=== PATIENT | female | born 1975 | race Caucasian/White ===

== ENCOUNTER 2017-09-30 14:58 | Outpatient (CLI) | payer OTHER ==
--- NOTE | 2017-09-30 16:26 | MMO ---
BILATERAL SCREENING MAMMOGRAMS: 09/30/17 There are no comparison studies available. This is therefore a baseline exam. Interpreted with comput er aided detection. Heterogeneously dense glandular pattern. There is a 1.4 cm nodular mass density in the outer mid left breast. This will need further evaluatio n with diagnostic exam. IMPRESSION: BIRADS 0: Incomplete: Need Additional Imaging Evaluation and/or Prior Mammograms for Comparison POS: [facility]
== END 2017-09-30 14:59 | disposition home or self-care (01) ==
LOC: SCSMAMMO 14:58
PROVIDERS: ATTEND Family Medicine
DX: Z12.31 Encounter for screening mammogram for malignant neoplasm of breast (principal)
CPT/HCPCS: 77067

== ENCOUNTER 2017-10-13 14:58 | Outpatient (CLI) | payer OTHER | END 2017-10-13 14:59 | disposition home or self-care (01) | LOC: BICMAMMO 14:58 | PROVIDERS: ATTEND Family Medicine | DX: N63.20 Unspecified lump in the left breast, unspecified quadrant (principal); Z80.3 Family history of malignant neoplasm of breast | CPT/HCPCS: G0279 ==

== ENCOUNTER → 2017-11-10 | Day surgery (SDC) | payer OTHER | LOC: BICULT 10:53 | PROVIDERS: ATTEND Family Medicine | PROC: 0HBU3ZX Excision of Left Breast, Percutaneous Approach, Diagnostic (ICD-10-PCS; principal; 2017-11-10) | DX: D24.2 Benign neoplasm of left breast (principal) | CPT/HCPCS: 19100; 76942; 88305 ==

== ENCOUNTER 2017-11-11 15:12 | Outpatient (CLI) | payer OTHER ==
--- NOTE | 2017-11-11 16:09 | MRI ---
MRI OF THE CERVICAL SPINE WITHOUT CONTRAST: INDICATION: Cervical radiculopathy right shoulder with right arm pain. TECHNIQUE: Multiplanar, multisequence MR images were obtained of the cervical spine without IV contrast. Bone marrow signal intensity appears within normal limits. The visualized posterior fossa is unremar kable appearing. At C2-C3, there is no appreciable central canal or neural foraminal narrowing. At C3-C4, there is no appreciable central canal or neural foraminal narrowing. There is mild left un covertebral hypertrophy. There is mild left facet joint degenerative change. At C4-5, there is mild facet joint degenerative change without appreciable central canal or neural fo raminal narrowing. At C5-6, there is no appreciable central canal or neural foraminal narrowing. There is mild facet mely int degenerative change. At C6-7, there is no appreciable central canal or neural foraminal narrowing. At C7-T1, there is no appreciable central canal or neural foraminal narrowing. IMPRESSION: Mild spondylosis of the cervical spine without appreciable central canal or neural foraminal narrowin judith. POS: [facility]
== END 2017-11-11 15:13 | disposition home or self-care (01) ==
LOC: SCSMRI 15:12
PROVIDERS: ATTEND Orthopaedic Surgery
DX: M47.22 Other spondylosis with radiculopathy, cervical region (principal); M25.511 Pain in right shoulder
CPT/HCPCS: 72141

== ENCOUNTER 2018-04-08 11:47 | Outpatient (CLI) | payer OTHER ==
[~2018-04-08 11:47] MED LIST: EPINEPHrine 1 MG/ML AMP ONE; Gadobenate Dimeglumine 529 MG/1 ML (20ML VIAL) ONE; Iopamidol 300 61% 50 ML VIAL FS ONE; Lidocaine 1% (PF) 30 ML VIAL ONE
--- NOTE | 2018-04-08 11:52 | RAD ---
ARTHROGRAM RIGHT SHOULDER: HISTORY: Internal derangement. FINDINGS: After explaining the procedure and answering all questions, the anterior aspect of the right shoulder was prepped and draped in the usual sterile fashion. Sterile technique, buffered local anesthesia. Fluoroscopic guidance, and an anterior approach were used to carefully advance a 22-guage spinal need le to the joint capsule of the level of the humeral head. Approximately 8 cc of a liquid mixture con taining normal saline, 1% Lidocaine, iodinated contrast, and small amounts of Gadolinium and epinephr ine were then instilled into the joint capsule under fluoroscopic control. The needle was removed. Contrast remained within the joint capsule. The patient tolerated the proce dure well and was transferred to MRI in good condition for further monitoring. IMPRESSION: Technically successful right shoulder arthrogram revealing no full-thickness rotator cuff tear. Post arthrogram MRI is pending. POS: [facility]
--- NOTE | 2018-04-08 13:58 | MRI ---
MR ARTHROGRAM OF THE RIGHT SHOULDER: INDICATION: History of right shoulder pain. TECHNIQUE: Multiplanar, multisequence MR images were obtained of the right shoulder following intraarticular adm inistration of dilute Gadolinium solution. Please see the separately dictated right shoulder arthrog jeffrey for details concerning the injection technique. FINDINGS: There is linear high T1 signal consistent with Gadolinium contrast extending into the superior glenoi d labrum just posterior to the biceps anchor and extending into the posterior glenoid labrum proximal ly to the 10 o'clock position. No paralabral cyst is evident. Glenohumeral articular surface is nor mal-appearing. The rotator cuff is intact. The inferior glenohumeral labral ligamentous complex is intact. There is mild acromioclavicular joint osteoarthrosis. Biceps tendon is located. There is a type II acromion. No os acromiale is evident. No muscular atrophy is demonstrated. IMPRESSION: 1. Superior labrum anterior to posterior tear. 2. Mild acromioclavicular joint osteoarthrosis. POS: [facility]
== END 2018-04-08 11:48 | disposition home or self-care (01) ==
LOC: RAD 11:47
PROVIDERS: ATTEND Orthopaedic Surgery
DX: M25.511 Pain in right shoulder (principal); S43.431A Superior glenoid labrum lesion of right shoulder, initial encounter; M19.011 Primary osteoarthritis, right shoulder
CPT/HCPCS: 23350; A9579; J0171; J2001; J7050

== ENCOUNTER 2018-10-04 12:51 | Outpatient (CLI) | payer OTHER ==
--- NOTE | 2018-10-05 08:11 | MMO ---
Bilateral MAMMO Bilat Screen [facility]DI. CLINICAL HISTORY: Patient is 43 years old and is seen for screening. The patient has the following family history of breast cancer: mother, at age 70, malignant (generic) and maternal aunt, malignant (generic). The patient has no personal history of cancer. The patient has a history of Ultrasound Guided Core Biopsy in Oct, 2017 - fibroadenoma. VIEWS: The views performed were: bilateral craniocaudal and bilateral mediolateral oblique. FILMS COMPARED: The present examination has been compared to prior imaging studies performed at [facility] on 10/13/2017, at [facility] on 09/30/2017, and at [facility] on 09/26/2010. This study has been interpreted with the assistance of computer-aided detection. MAMMOGRAM FINDINGS: The breasts are heterogeneously dense, which could obscure a lesion on mammography. There is a biopsy clip seen in the left breast. There are no suspicious masses, suspicious calcifications, or new areas of architectural distortion. IMPRESSION: THERE IS NO MAMMOGRAPHIC EVIDENCE OF MALIGNANCY. A ROUTINE FOLLOW-UP MAMMOGRAM IN 1 YEAR IS RECOMMENDED. ACR BI-RADS Category 2 - Benign finding MAMMOGRAPHY NOTE: 1. A negative mammogram report should not delay a biopsy if a dominant of clinically suspicious mass is present. 2. Approximately 10% to 15% of breast cancers are not detected by mammography. 3. Adenosis and dense breasts may obscure an underlying neoplasm.
== END 2018-10-04 12:52 | disposition home or self-care (01) ==
LOC: SCSMAMMO 12:51
PROVIDERS: ATTEND Family Medicine
DX: Z12.31 Encounter for screening mammogram for malignant neoplasm of breast (principal); Z80.3 Family history of malignant neoplasm of breast
CPT/HCPCS: 77067